=== PATIENT | female | born 1975 | race Two or more races ===

== ENCOUNTER 2025-02-23 10:11 | Outpatient (CLI) | payer BC ==
[2025-02-23 11:38] LABS: Hematocrit 40.0 % (36.0-46.0); Hemoglobin 13.3 g/dL (12.2-16.2); Mean Corpuscular Hemoglobin 26.3 pg (28.0-32.0); Mean Corpuscular Volume 79.4 fL (80.0-100.0); Nucleated Red Blood Cells % 0.1 %
[2025-02-23 11:50] LABS: Urine Protein, UAD Negative (Negative)
[2025-02-23 12:15] LABS: Alanine Aminotransferase 15 U/L (7-40); Albumin 4.6 g/dL (3.2-4.8); Alkaline Phosphatase 82 U/L (46-116); Anion Gap 11 (5-15); Calcium 9.9 mg/dL (8.7-10.4); Carbon Dioxide 24 mmol/L (20-31); Glucose 82 mg/dL (74-106); Potassium 3.6 mmol/L (3.5-5.1); Sodium 142 mmol/L (136-145); Total Protein 7.1 g/dL (5.7-8.2); Triglycerides 130 mg/dL (< 150)
[2025-02-23 12:16] LABS: Bilirubin, Total 0.4 mg/dL (0.2-1.0)
[2025-02-23 12:17] LABS: BUN/Creatinine Ratio 22.2 (10.0-20.0); Blood Urea Nitrogen 12 mg/dL (9-23); Chloride 107 mmol/L (98-107); Cholesterol 227 mg/dL (< 200); HDL Cholesterol 63 mg/dL (40-59)
== END 2025-02-23 17:00 | disposition home or self-care (01) ==
LOC: LAB 10:11
PROVIDERS: ATTEND Internal Medicine
DX: D64.9 Anemia, unspecified (principal); K59.00 Constipation, unspecified; R53.81 Other malaise
CPT/HCPCS: 36415; 80053; 80061; 81001; 82306; 82607; 82746; 83036; 84443; 85025

== ENCOUNTER 2025-02-26 10:28 | Outpatient (CLI) | payer BC ==
[2025-02-26 11:51] LABS: Lipase 52 U/L (12-53)
[2025-02-26 11:53] LABS: Amylase 92 U/L (30-118)
== END 2025-02-26 17:00 | disposition home or self-care (01) ==
LOC: LAB 10:28
PROVIDERS: ATTEND Internal Medicine
DX: K59.00 Constipation, unspecified (principal)
CPT/HCPCS: 36415; 82150; 83690